=== PATIENT | female | born 1975 | race Caucasian/White ===

== ENCOUNTER → 2018-06-01 | Outpatient (CLI) | payer OTHER ==
--- NOTE | 2018-06-03 16:08 | PATH ---
[address] [address] PATHOLOGY RPT PROCEDURE Name: CHERISE BRIONES [id number] Admission: 06/01/18 Date of : 71 Discharge: Report #: [id number] Path Case #: [id number] [facility] Accession Number: [id number] . 01 Material submitted: . LEFT BREAST . 01 Clinical history: . 0.53 x 0.39 x 0.44 cm mass . 02 Diagnosis: Breast mass, left, 3:00, 2 cm from nipple, core needle biopsy: - Stromal fibrosis with associated adenosis. - Simple cysts. - No evidence of atypia or carcinoma. . (Please see comment) [facility]/06/02/2018 . 02 Comment: This case has also been reviewed by Dr. Yuli Vargas who agrees with the diagnosis. . (SKM:mml; 06/02/18) . 02 Electronically signed: . Jules Burrell MD, Pathologist NPI- [id number] . 01 Gross description: . Received in formalin labeled "Cherise Briones, left breast 3:00, 2 cm FN," are multiple needle cores of yellow-turner fibrofatty tissue measuring 1.3 x 0.8 x 0.4 cm in aggregate dimensions. The tissue submitted in its entirety in cassette A1 through A3. The cold ischemic time is 5 minutes. The total formalin fixation time is 14 hours and 14 minutes. (TSD; 06/01/2018) TOB/TOB . 02 Pathologist provided ICD-10: N60.32, N60.22, N60.02 . 02 CPT . 407058 Performed at: [address] [id number] MD Isaias Hicks MD Phone: [phone] Performed at: [address] [place] [id number] PATHOLOGY RPT PROCEDURE Name: CHERISE BRIONES Room: [facility]#: [id number] Admission: 06/01/18 Date of : 71 Discharge: Report #: [id number] Path Case #: [id number] Lab[address]CollinsSaint [place], [place] [id number] MD Cullen Garcia MD Phone: [phone]
== END ==
LOC: M.ULTRA 08:11
DX: N60.32 Fibrosclerosis of left breast (principal); N60.22 Fibroadenosis of left breast; R92.1 Mammographic calcification found on diagnostic imaging of breast

== ENCOUNTER → 2019-05-25 | Outpatient (CLI) | payer BC | LOC: M.RAD 04-10 08:25 | DX: N63.21 Unspecified lump in the left breast, upper outer quadrant (principal); N63.11 Unspecified lump in the right breast, upper outer quadrant ==

== ENCOUNTER → 2020-01-15 | Outpatient (CLI) | payer BC | LOC: M.ULTRA 15:18 | DX: N88.8 Other specified noninflammatory disorders of cervix uteri (principal); N92.0 Excessive and frequent menstruation with regular cycle ==

== ENCOUNTER 2020-06-05 12:27 | Emergency (ER) | payer BC ==
[~2020-06-05] VITALS: Ht 162.6 cm; Wt 86.2 kg
[2020-06-05] MEDS ORDERED: AZITHROMYCIN500 MG PO (12:46)
[2020-06-05 13:29] LABS: ABSOLUTE LYMPHOCYTES 0.5 thou/uL (0.8-5.3); ABSOLUTE MONOCYTES 0.2 thou/uL (0.0-1.2); BASOPHILS 0.4 %; HEMATOCRIT 36.1 % (37.0-47.0); HEMOGLOBIN 12.4 gm/dL (12.0-15.0); LYMPHOCYTES 8.5 %; MCH 28.7 pg (26.0-34.0); MCHC 34.4 g/dL (28.0-37.0); MCV 83.6 fL (80.0-100.0); MONOCYTES 4.3 %; MPV 10.8 fl. (7.2-11.1); NUCLEATED RBCS 0 /100WBC; PLATELET COUNT* 141 thou/uL (150-400); POLYS 86.8 %; RBC 4.32 mil/uL (4.20-5.00); RDW-CV 15.8 % (10.5-14.5); WBC 5.8 thou/uL (4.0-11.0)
[2020-06-05 13:42] LABS: CALCIUM 7.9 mg/dL (8.5-10.1); CREATININE 0.8 mg/dL (0.6-1.3); POTASSIUM 3.4 mmol/L (3.5-5.1)
[2020-06-05 13:52] LABS: MAGNESIUM 1.8 mg/dL (1.8-2.4); TOTAL BILIRUBIN 0.5 mg/dL (<0.1-1.0); TOTAL PROTEIN 6.4 g/dL (6.4-8.2)
[2020-06-05] MEDS ORDERED: VENTOLIN HFA 1818 GM INH (14:45)
[2020-06-05] MEDS ORDERED: ONDANSETRON HCL4 M2 PO (14:45)
[2020-06-05] MEDS ORDERED: LEVAQUIN 500 M500 M2 PO (14:45)
--- NOTE | 2020-06-05 15:25 | EKG ---
[place] [address] ELECTROCARDIOGRAM REPORT Name: LINDA MUNOZ Room: [facility]#: [id number] Admission: 06/05/20 Attend Phys: Discharge: Date of : 71 Date of Service: 06/05/20 1345 Report #: [id number] THIS REPORT FOR: //name// [facility] ED Test Date: 2020-06-05 Test Time: 13:45:47 Pat Name: LINDA MUNOZ Department: Room: Gender: F Lopper: [facility] : 1975 Requested By: Belgica Arriaga Order Number: [id number] MD: Noman Titus Measurements Intervals [place] Rate: 119 P: 48 KS: 124 QRS: 72 QRSD: 85 T: -58 QT: 292 QTc: 411 Interpretive Statements Sinus tachycardia Probable left atrial enlargement Borderline repolarization abnormality No previous ECG available for comparison Electronically Signed On 06-05-2020 15:25:06 CDT by Noman Titus [email or web address] <ELECTRONICALLY SIGNED> By: Noman Titus MD, [facility] 06/05/20 1525 134 Noman Titus MD, FACC /EPI
[2020-06-05 16:12] VITALS: BP 108/64
== END 2020-06-05 17:07 | disposition home or self-care (01) ==
LOC: M.ERS 12:27
PROVIDERS: Nurse Practitioner Family
DX: J18.1 Lobar pneumonia, unspecified organism (principal); Z20.828 Contact with and (suspected) exposure to other viral communicable diseases; E86.0 Dehydration; Z79.2 Long term (current) use of antibiotics

== ENCOUNTER → 2021-01-01 | Outpatient (CLI) | payer OTHER ==
[~2021-01-01] MED LIST: AZITHROMYCIN500 MG PO; LEVAQUIN 500 M500 M2 PO; ONDANSETRON HCL4 M2 PO; VENTOLIN HFA 1818 GM INH
== END ==
LOC: M.LAB 11:09 → M.ULTRA 11:09
PROVIDERS: ATTEND Obstetrics & Gynecology
DX: N83.01 Follicular cyst of right ovary (principal); N92.0 Excessive and frequent menstruation with regular cycle

== ENCOUNTER 2021-03-15 07:10 | Emergency (ER) | payer OTHER ==
[~2021-03-15] VITALS: Ht 167.6 cm; Wt 88.5 kg
[2021-03-15] MEDS ORDERED: MINIVELLE1 EAC1 PO (07:27)
[2021-03-15] MEDS ORDERED: GABAPENTIN600 M1 PO (07:27)
[2021-03-15] MEDS ORDERED: OMEPRAZOLE 20 M20 M1 PO (07:27)
[2021-03-15] MEDS ORDERED: TESSALON PERLE100 M1 PO (07:58)
[2021-03-15 08:10] VITALS: BP 146/89
== END 2021-03-15 08:10 | disposition home or self-care (01) ==
LOC: M.ERS 07:10
DX: B34.9 Viral infection, unspecified (principal); Z90.710 Acquired absence of both cervix and uterus

== ENCOUNTER → 2021-07-25 | Outpatient (CLI) | payer OTHER ==
[~2021-07-25] MED LIST changes: +GABAPENTIN600 M1 PO; +MINIVELLE1 EAC1 PO; +OMEPRAZOLE 20 M20 M1 PO; +POLYMYXIN B/TMP10 ML RT. EYE; +TESSALON PERLE100 M1 PO
[2021-07-25 08:43] LABS: ABSOLUTE BASOPHILS 0.1 thou/uL (0.0-0.2); ABSOLUTE EOSINOPHILS 0.2 thou/uL (0.0-0.7); ABSOLUTE LYMPHOCYTES 1.3 thou/uL (0.8-5.3); ABSOLUTE MONOCYTES 0.4 thou/uL (0.0-1.2); ABSOLUTE NEUTROPHILS 2.9 thou/uL (1.6-8.1); BASOPHILS 1.6 %; EOSINOPHILS 3.7 %; HEMATOCRIT 33.8 % (37.0-47.0); HEMOGLOBIN 10.5 gm/dL (12.0-15.0); LYMPHOCYTES 26.4 %; MCH 23.4 pg (26.0-34.0); MCHC 31.1 g/dL (28.0-37.0); MCV 75.2 fL (80.0-100.0); MONOCYTES 7.4 %; MPV 8.6 fl. (7.2-11.1); NUCLEATED RBCS 0 /100WBC; PLATELET COUNT* 230 thou/uL (150-400); POLYS 60.9 %; RBC 4.49 mil/uL (4.20-5.00); RDW-CV 15.9 % (10.5-14.5); WBC 4.8 thou/uL (4.0-11.0)
== END ==
LOC: M.LAB 08:17
PROVIDERS: ATTEND Obstetrics & Gynecology
DX: N95.1 Menopausal and female climacteric states (principal); R53.83 Other fatigue